=== PATIENT | female | born 2000 | race Caucasian/White ===

== ENCOUNTER 2023-04-06 16:23 | Emergency (ER) | payer BC ==
[~2023-04-06] VITALS: Ht 165.1 cm; Wt 51.3 kg
[2023-04-06 16:25] VITALS: BP_SYST 111; PULSE 80; RESP 17; TEMP 97.6; O2SAT 97
[2023-04-06 17:16] LABS: EOSINOPHILS # (AUTO) 0.3 K/uL (0.0-0.4); HEMOGLOBIN 14.8 g/dL (12.0-16.0); MONOCYTES # (AUTO) 0.5 K/uL (0.0-1.0); NEUTROPHILS # (AUTO) 3.6 K/uL (1.8-7.7); RED CELL DISTRIBUTION WIDTH 12.3 % (9.0-15.0)
[2023-04-06 17:21] LABS: BASOPHILS # (AUTO) 0.1 K/uL (0.0-0.2); BASOPHILS % (AUTO) 0.8 % (0.0-2.0); HEMATOCRIT 43.6 % (36-48); LYMPHOCYTES # (AUTO) 1.9 K/uL (1.0-5.5); LYMPHOCYTES % (AUTO) 30.3 % (20.5-51.5); MEAN CORPUSCULAR HEMOGLOBIN 31 pg (27-31); MEAN CORPUSCULAR HGB CONC 34 % (32-36); MEAN CORPUSCULAR VOLUME 91 fL (79.0-98.0); MONOCYTES % (AUTO) 7.4 % (1.7-9.3); NEUTROPHILS % (AUTO) 56.5 % (40.0-70.0); PLATELET COUNT (AUTO) 285 K/uL (130-430); RED BLOOD CELL COUNT(AUTO) 4.78 MIL/uL (4.2-6.2); WHITE BLOOD COUNT (AUTO) 6.3 K/uL (4.8-10.8)
[2023-04-06 17:31] LABS: CALCIUM 9.1 mg/dL (8.4-11.0)
[2023-04-06 17:32] LABS: ALBUMIN 4.1 g/dL (3.4-4.8); CREATININE 0.82 mg/dL (0.55-1.30); TOTAL BILIRUBIN 0.3 mg/dL (0.0-1.0); TOTAL PROTEIN, SERUM 7.1 g/dL (6.4-8.3)
== END 2023-04-06 18:44 | disposition home or self-care (01) ==
LOC: SED 16:23
DX: N93.9 Abnormal uterine and vaginal bleeding, unspecified (principal); N83.209 Unspecified ovarian cyst, unspecified side; R10.2 Pelvic and perineal pain; Z79.899 Other long term (current) drug therapy
CPT/HCPCS: 36415; 76856-TC; 80053; 81025; 84702; 85025; 86900; 86901; 99284